=== PATIENT | female | born 1965 | race Caucasian/White ===

== ENCOUNTER 2016-07-23 13:23 | Emergency (ER) | payer OTHER ==
[2016-07-23 14:37] LABS: BASOPHIL 0.4 % (0-2); EOSINOPHIL 3.6 % (0-5); HCT 42.7 % (37.0-47.0); HGB 14.7 g/dl (12.5-16.0); MCH 32.4 pg (25.0-31.0); MCHC 34.4 g/dL (32.0-36.0); MCV 94.1 fL (78.0-100.0); MONOCYTE 10.3 % (0-12); MPV 10.2 fL (6.0-9.5); NEUTROPHIL 60.7 % (41-80); PLT 103 K/uL (150-400); RBC 4.54 M/uL (4.20-5.40); RDW 14.4 % (11.5-14.0); WBC 5.4 K/uL (4.0-10.5)
[2016-07-23 14:54] LABS: CREATININE 0.6 mg/dL (0.5-1.0)
== END 2016-07-23 15:39 | disposition home or self-care (01) ==
LOC: FER 13:23
PROVIDERS: Emergency Medicine
DX: R07.2 Precordial pain (principal); F17.200 Nicotine dependence, unspecified, uncomplicated; Z91.012 Allergy to eggs; Z87.81 Personal history of (healed) traumatic fracture; Z82.49 Family history of ischemic heart disease and other diseases of the circulatory system
CPT/HCPCS: 36415; 71020; 80048; 84484; 85025; 93005